=== PATIENT | male | born 1995 | race Caucasian/White ===

== ENCOUNTER 2023-09-21 06:16 | Emergency (ER) | payer OTHER, SELFPAY ==
--- NOTE | ~2023-09-21 | CT_ITS ---
EXAMINATION: CT facial & cervical spine wo DATE: 09/21/2023 06:47 INDICATION: Syncope, head injury. Struck head on wall. Bleeding from nose, left cheek abrasion. TECHNIQUE: Computed tomography (CT) of the facial bones and maxillofacial region was performed withou t intravenous contrast. Automated exposure control and iterative reconstruction technique were employ ed. Exam dose: 371.34 mGy-cm total exam DLP. COMPARISON: None. FINDINGS: Minimally displaced nasal bone fractures of undetermined age. Clinical correlation would be helpful to assess age. The frontozygomatic sutures, orbital rims and cart[place]a, zygomatic arches, maxillary bones and pterygoid plates are intact. No mandibular fracture or temporomandibular joint dislocation. There is mild nuchal periosteal thickening along the inferomedial wall the right maxillary sinus. The paranasal sinuses are otherwise normally developed and aerated. The cervical interspaces are relativ ajay well preserved. C1 and C2 are normally aligned and the odontoid process is intact. No fracture or dislocation or lock ed facet or prevertebral soft tissue swelling. Cervical interspaces are preserved. IMPRESSION: Nasal fractures of undetermined age No maxillofacial fracture or cervical spine fracture, dislocation or locked facet is noted otherwise Reviewed, dictated and finalized at [facility] Reviewed, dictated and finalized at [facility] O PRODUCTION ASSISTANT IMPRESSION: Nasal fractures of undetermined age No maxillofacial fracture or cervical spine fracture, dislocation or locked fac et is noted otherwise
--- NOTE | ~2023-09-21 | CT_ITS ---
EXAMINATION: CT brain wo con DATE: 09/21/2023 06:47 INDICATION: Syncope. Head injury. Struck head on wall. Bleeding from nose. Left cheek abrasion. TECHNIQUE: Computed tomography (CT) of the head was performed without intravenous contrast. The mA wa s adjusted according to patient size. Iterative reconstruction technique was employed. Exam dose: 68 1.00 mGy-cm total exam DLP. COMPARISON: None FINDINGS: No intracranial mass lesion or hemorrhage, midline shift or mass effect. Normal swanson-white matter differentiation. Normal ventricular size. No subdural or epidural hematoma. Minimally displaced nasal bone fractures of undetermined age. No skull fracture or bone destruction. There is mild mucoperiosteal thickening along the inferomedial wall of the left maxillary sinus. The paranasal sinuses are otherwise unremarkable. The mastoid air cells are minimally developed but clear. IMPRESSION: Minimally displaced nasal bone fractures of uncertain age No skull fracture or acute intracranial finding Reviewed, dictated and finalized at [facility] Reviewed, dictated and finalized at [facility]. OUT WORKER
[2023-09-21 06:17] VITALS: BP 73/32; PULSE 43; RESP 14; TEMP 36.4; O2SAT 100
[2023-09-21 06:25] VITALS: BP 100/52; PULSE 66; RESP 13; O2SAT 100
--- NOTE | 2023-09-21 06:25 | ECG_ITS ---
Measurements Intervals [place] Rate: 54 P: 53 [place]: 154 QRS: 75 QRSD: 106 T: 61 QT: 400 QTc: 381 Interpretive Statements SINUS BRADYCARDIA ST ELEVATION IN ANTEROLAT/INF LEADS- PROBABLY EARLY REPOLARIZATION MINIMAL Q WAVES- INFERIOR LEADS BASELINE ARTIFACT- I, II, AVR BORDERLINE ECG NO PREVIOUS ECG AVAILABLE FOR COMPARISON Electronically Signed On 09-21-2023 8:48:30 INSTRUMENTATION SUPERVISOR by Siva Garcia D.O.
--- NOTE | 2023-09-21 06:26 | ED.GENADULT ---
HPI - General Adult General Chief complaint: Head Injury <Brant Davis MD - Last Filed: 09/21/23 06:29> Stated complaint: syncope <Brant Davis MD - Last Filed: 09/21/23 06:29> Time Seen by Provider: 09/21/23 06:21 <Brant Davis MD - Last Filed: 09/21/23 06:29> History of Present Illness HPI narrative: patient from 28-year-old gentleman who presents emergency department with chief complaint of head injury. The patient reports that he was in the emergency department with another individual and they were getting blood drawn the patient was sitting in a chair and started to feel lightheaded the patient reports that whenever he has weakness blood before in the past he has had syncopal episodes the patient states that the next thing he remembers he was lying on the floor and had blood coming out of his nose. The patient reports the blood out of his right nostril. The patient is unsure of his last tetanus shot <Brant Davis MD - Last Filed: 09/21/23 06:29> Related Data Home medications: Home Medications Medication Instructions Recorded Confirmed No Home Medications 09/21/23 09/21/23 <Brant Davis MD - Last Filed: 09/21/23 06:29> Allergies/adverse reactions: Allergies Allergy/AdvReac Type Severity Reaction Status Date / Time No Known Allergies Allergy Verified 09/21/23 06:23 <Brant Davis MD - Last Filed: 09/21/23 06:29> Review of Systems Review of Systems: A 10 system review of systems was completed on the patient and is negative except for what is stated in the HPI. Nursing and ancillary documentation was reviewed. <Brant Davis MD - Last Filed: 09/21/23 06:29> Exam Narrative: GENERAL: Well-appearing, well-nourished, and in no acute distress. HEAD: Normocephalic, . EYES: PERRLA and EOMI. ENT: Nares clear, no rhinorrhea there is dried blood in the right nostril there is an abrasion present to the left side of the nose. Mucous membranes moist. NECK: Supple. CHEST: Clear to auscultation. No respiratory distress. HEART: Regular rate and rhythm. No murmur heard. Normal peripheral pulses. ABDOMEN: Soft, nontender, nondistended, normal active bowel sounds. EXTREMITIES: Normal range of motion. No edema. SKIN: Warm, dry, no rash. NEURO: No focal deficits. Alert and oriented x3. GCS 15 PSYCH: Normal mood and affect. <Brant Davis MD - Last Filed: 09/21/23 06:29> Course Vital Signs Vital signs: Vital Signs Temperature 36.4 C L 09/21/23 06:17 Pulse Rate 43 L 09/21/23 06:17 Respiratory Rate 14 09/21/23 06:17 Blood Pressure 73/32 L 09/21/23 06:17 Pulse Oximetry 100 09/21/23 06:17 Oxygen Delivery Room Air 09/21/23 06:17 Temperature 36.4 C L 09/21/23 06:17 Pulse Rate 61 09/21/23 07:45 Respiratory Rate 19 09/21/23 07:45 Blood Pressure 108/76 09/21/23 07:45 Pulse Oximetry 100 09/21/23 07:45 Oxygen Delivery Room Air 09/21/23 06:17 <Brant Davis MD - Last Filed: 09/21/23 06:29> Vital Signs Temperature 36.4 C L 09/21/23 06:17 Pulse Rate 43 L 09/21/23 06:17 Respiratory Rate 14 09/21/23 06:17 Blood Pressure 73/32 L 09/21/23 06:17 Pulse Oximetry 100 09/21/23 06:17 Oxygen Delivery Room Air 09/21/23 06:17 Temperature 36.4 C L 09/21/23 06:17 Pulse Rate 61 09/21/23 07:45 Respiratory Rate 19 09/21/23 07:45 Blood Pressure 108/76 09/21/23 07:45 Pulse Oximetry 100 09/21/23 07:45 Oxygen Delivery Room Air 09/21/23 06:17 <Denise Sandoval MD - Last Filed: 09/21/23 10:11> Medical Decision Making Medical Records Medical records reviewed: Yes I reviewed the external patient's medical records. <Denise Sandoval MD - Last Filed: 09/21/23 10:11> Vital Signs Vital Signs: Vital Signs Temperature 36.4 C L 09/21/23 06:17 Pulse Rate 43 L 09/21/23 06:17 Respirator
[2023-09-21] MEDS: SODIUM CHLORIDE 0.9% IV 1,000 ML 999 ML IV CONT (06:33)
[2023-09-21 06:35] LABS: Basophils Absolute Auto 0.1 K/mm3 (0.0-0.1); Basophils Percent Auto 0.8 % (0.2-1.2); Eosinophils Absolute Auto 0.6 K/mm3 (0-0.3); Eosinophils Percent Auto 4.1 % (0-4.4); Hemoglobin 14.7 g/dL (14.0-18.0); Immature Granulocyte Absolute 0.05 K/mm3 (0.00-0.031); Immature Granulocyte Percent A 0.3 % (0-0.5); Lymphocytes Absolute Auto 6.74 K/mm3 (0.9-3.2); Lymphocytes Percent Auto 45.8 % (18.3-44.2); Mean Corpuscular HGB Conc 33.4 g/dl (32-36); Mean Corpuscular Hemoglobin 29.8 pg (26-34); Mean Corpuscular Volume 89.2 fl (80-100); Mean Platelet Volume 10.5 fl (7.4-10.4); Monocytes Absolute Auto 1.1 K/mm3 (0.1-0.6); Monocytes Percent Auto 7.4 % (2.6-8.5); Neutrophils Absolute Auto 6.1 K/mm3 (1.3-6.7); Neutrophils Percent Auto 41.6 % (45.5-73.1); Platelet Count Result 300 k/mm3 (150-375); Red Blood Count 4.93 M/mm3 (4.6-6.20); Red Cell Distribution Width 12.3 % (11.5-14.5); White Blood Count 14.7 K/mm3 (4.5-10.0)
--- NOTE | 2023-09-21 06:36 | PC.NURSE ---
Patient taken to CT via w/c at this time.
[2023-09-21 06:45] LABS: Alanine Aminotransferase 22 U/L (6-50); Albumin Level 4.5 g/dL (3.5-5.1); Alkaline Phosphatase 57 U/L (38-126); Anion Gap 9 mmol/L (8-16); Aspartate Amino Transferase 32 U/L (17-59); Bilirubin,Total 0.6 mg/dL (0.2-1.3); Blood Urea Nitrogen 15 mg/dL (9-20); Calcium 9.2 mg/dL (8.4-10.2); Carbon Dioxide 28 mmol/L (22-30); Chloride 102 mmol/L (98-107); Estimated CRCL calculation 109 ml/min; Estimated Glomerular Filt Rate > 60; Glucose 122 mg/dL (65-110); Potassium 3.2 mmol/L (3.4-5.0); Sodium 139 mmol/L (137-145)
[2023-09-21] MEDS: TETANUS,DIPHTHERIA,AC PERTUSSIS ADULT (0.5 ML) BOOSTRIX IM (06:45)
[2023-09-21 06:47] VITALS: BP 106/54; PULSE 51
[2023-09-21 06:48] VITALS: BP 107/63; BP 94/58; PULSE 54; PULSE 55
[2023-09-21 07:45] VITALS: BP 108/76; PULSE 61; RESP 19; O2SAT 100
[2023-09-21] MEDS: POTASSIUM CHLORIDE 20 MEQ PACKET (FOR LIQUID) 40 MEQ PO (10:16)
[2023-09-21 10:17] VITALS: BP 113/60; PULSE 70; RESP 18; O2SAT 99
== END 2023-09-21 10:19 | disposition home or self-care (01) ==
PROVIDERS: Emergency Medicine; Emergency Provider Emergency Medicine
DX: S02.2XXA Fracture of nasal bones, initial encounter for closed fracture (principal); R55 Syncope and collapse; Z23 Encounter for immunization; W07.XXXA Fall from chair, initial encounter
CPT/HCPCS: 36415; 70450; 70486; 72125; 80053; 85025; 90471; 90715; 93005; 96360; 99284; A9270; J7030